=== PATIENT | male | born 1995 | race Caucasian/White ===

== ENCOUNTER 2020-03-24 16:47 | Emergency (ER) | payer BC, OTHER ==
[~2020-03-24] VITALS: Ht 177 cm; Wt 100.0 kg
[2020-03-24] MEDS ORDERED: RX-ALBUTEROL INHALER (VENTOLIN HFA) 18 GM IH STA ×2 (17:16→17:51)
--- NOTE | 2020-03-24 17:23 | ED Dyspnea ---
General Stated Complaint: COVID POSITIVE - SOA Source of Information: Patient Exam Limitations: No Limitations History of Present Illness Date Seen by Provider: Mar 24, 2020 Time Seen by Provider: 17:21 Initial Comments to ER with reports of sudden onset shortness of breath while he was driving around today. He was diagnosed with COVID-19 after testing positive at [facility] about 7-10 days ago. He's been doing well up until this point without much shortness of breath. He does have a history of asthma as a child but nothing recent.he is not on any medications except for omeprazole.states that perhaps he just got himself anxious. Timing/Duration: 1/2 Hour Severity: Moderate Associated Symptoms: Anxiety Allergies and Home Medications Allergies Coded Allergies: No Known Drug Allergies (Unverified , 03/24/20) Patient Home Medication List Home Medication List Reviewed: Yes Review of Systems Review of Systems Constitutional: see HPI, chills (intermittent chills and fever), fever EENTM: see HPI Respiratory: see HPI, cough, short of breath Cardiovascular: no symptoms reported; No chest pain, No edema Genitourinary: no symptoms reported Musculoskeletal: no symptoms reported Skin: no symptoms reported Psychiatric/Neurological: No Symptoms Reported Physical Exam Vital Signs Capillary Refill : Height, Weight, BMI Height: '" Weight: lbs. oz. kg; BMI Method: General Appearance: No Apparent Distress, WD/WN, Other (alert and oriented no distress no tachypnea or tachycardia. Oxygen saturation 99% on room air. Lungs are clear with good air movement and no wheezing.) Neck: Full Range of Motion, Normal Inspection Respiratory: Normal Breath Sounds, No Accessory Muscle Use, No Respiratory Distress Cardiovascular: Regular Rate, Rhythm, Normal Peripheral Pulses Gastrointestinal: Normal Bowel Sounds, Non Tender, Soft Extremity: Normal Capillary Refill, Normal Inspection Neurologic/Psychiatric: Alert, Oriented x3 Skin: Normal Color, Warm/Dry Progress/Results/Core Measures Results/Orders My Orders Orders - LARS VOGEL APRN Cbc With Automated Diff (03/24/20 17:16) Comprehensive Metabolic Panel (03/24/20 17:16) Hs C Reactive Protein (03/24/20 17:16) Fibrin Degradation Products (03/24/20 17:16) Chest 1 View, Ap/Pa Only (03/24/20 17:16) Ed Iv/Invasive Line Start (03/24/20 17:16) Rx-Albuterol Inhaler (Rx-Ventolin Hfa) (03/24/20 17:16) Departure Impression Primary Impression: COVID-19 Disposition: 01 HOME, SELF-CARE Condition: Stable Departure-Patient Inst. Decision time for Depature: 17:23 Patient Instructions: Coronavirus Disease 2019 (COVID-19) Overview Add. Discharge Instructions: 1. Use the inhaler 4 puffs every 4 hours as needed. Tylenol and ibuprofen for fever control. Return to ER for any concerns. 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
[2020-03-24 17:41] LABS: BASOPHILS % (AUTO) 0 % (0-10); EOSINOPHILS # (AUTO) 0.2 10^3/uL (0.0-0.3); EOSINOPHILS % (AUTO) 2 % (0-10); HEMATOCRIT 47 % (40-54); HEMOGLOBIN 16.7 G/DL (13.3-17.7); LYMPHOCYTES # (AUTO) 3.4 X 10^3 (1.0-4.0); LYMPHOCYTES % (AUTO) 43 % (12-44); MEAN CORPUSCULAR HEMOGLOBIN 29 PG (25-34); MEAN CORPUSCULAR HGB CONC 35 G/DL (32-36); MEAN CORPUSCULAR VOLUME 83 FL (80-99); MONOCYTES # (AUTO) 0.5 X 10^3 (0.0-1.0); MONOCYTES % (AUTO) 7 % (0-12); NEUTROPHILS # (AUTO) 3.7 X 10^3 (1.8-7.8); NEUTROPHILS % (AUTO) 48 % (42-75); PLATELET COUNT 216 10^3/uL (130-400); WHITE BLOOD COUNT 7.8 10^3/uL (4.3-11.0)
[2020-03-24 17:51] LABS: ALBUMIN 5.1 GM/DL (3.2-4.5); CHLORIDE 101 MMOL/L (98-107); POTASSIUM 3.7 MMOL/L (3.6-5.0); SODIUM 137 MMOL/L (135-145)
[2020-03-24 17:53] LABS: CALCIUM 10.1 MG/DL (8.5-10.1)
[2020-03-24 17:54] LABS: GLUCOSE 83 MG/DL (70-105); TOTAL PROTEIN 8.7 GM/DL (6.4-8.2)
[2020-03-24 17:55] LABS: BILIRUBIN,TOTAL 0.5 MG/DL (0.1-1.0); CARBON DIOXIDE 23 MMOL/L (21-32)
[2020-03-24 17:57] LABS: ALKALINE PHOSPHATASE 65 U/L (40-136); CREATININE SERUM 1.11 MG/DL (0.60-1.30); GFR ESTIMATED > 60
--- NOTE | 2020-03-24 17:57 | Diagnostic Imaging Report ---
CHEST 1 VIEW, AP/PA ONLY Indication: Dyspnea Comparison: None available. Findings: No focal airspace disease in the visualized lungs. Please note that the posterior lower lobes are poorly evaluated by portable radiography. No pleural effusion or pneumothorax. Normal cardiomediastinal silhouette. Impression: 1. No acute cardiopulmonary process by portable radiography. Dictated by: Dictated on workstation # [id number]
[2020-03-24 17:58] LABS: BUN/CREATININE RATIO 12
[2020-03-24 18:00] LABS: ALANINE AMINOTRANSFERASE 27 U/L (0-55)
[2020-03-24] MEDS ORDERED: HOLD METFORMIN - RECEIVED CONTRAST 20 ML VIAL IV SCH (18:15)
[2020-03-24] MEDS ORDERED: IOHEXOL 350 MG/ML 100 ML (OMNIPAQUE 350) VIAL IV ONE (18:15)
[2020-03-24] MEDS ORDERED: NS 100 ML (IVPB) BAG IV ONE (18:15)
--- NOTE | 2020-03-24 18:47 | Diagnostic Imaging Report ---
PROCEDURE: CT angiography Chest TECHNIQUE: After intravenous administration of contrast, thin section axial CT angiography of the chest was performed. 3D MIP reconstructions were made. All CT scans use one or more of the following dose optimizing techniques: automated exposure control, MA and/or KvP adjustment based on a patient size and exam type, or iterative reconstruction. INDICATION: Dyspnea. Positive for COVID-19. COMPARISON: Chest radiograph of earlier same day FINDINGS: Vasculature: No pulmonary emboli. Please note assessment of the left lower lobe segmental and subsegmental pulmonary disease is limited due to respiratory motion artifact. No features right ventricular strain or pulmonary hypertension. Thoracic aorta is normal in caliber. No aortic dissection or pseudoaneurysm. Heart and mediastinum: Visualized thyroid is normal. No supraclavicular, axillary, or intra-thoracic lymphadenopathy. The heart is normal in size without pericardial effusion. Pleura: No pleural effusion or pneumothorax. Lungs and airway: No endoluminal lesion in the trachea or central bronchi. No pulmonary mass, nodule or consolidation. Upper abdomen: Allowing for the phase of contrast, no acute abnormality in the upper abdomen is seen. Musculoskeletal: No concerning osseous lesion. IMPRESSION: 1. No acute cardiopulmonary process. Specifically, no pulmonary emboli or acute aortic syndrome. Dictated by: Dictated on workstation # [id number]
[2020-03-24 19:01] VITALS: BP 137/63
== END 2020-03-24 19:02 | disposition home or self-care (01) ==
LOC: ER 16:50
DX: U07.1 COVID-19 (principal)
CPT/HCPCS: 36415; 71045; 71275; 80053; 85025; 85379; 86141